=== PATIENT | male | born 1960 | race Caucasian/White ===

== ENCOUNTER 2018-05-26 09:57 | Day surgery (SDC) | payer OTHER ==
[~2018-05-26 09:57] MED LIST: METFORMIN HCL500 MG PO; SYNTHROID112 MCG PO
== END 2018-05-26 17:10 | disposition home or self-care (01) ==
LOC: CIR.AMB 09:57
DX: M75.122 Complete rotator cuff tear or rupture of left shoulder, not specified as traumatic (principal)